=== PATIENT | female | born 1985 | race Caucasian/White ===

== ENCOUNTER 2020-12-31 10:28 | Observation (INO) | payer OTHER ==
[~2020-12-31] VITALS: Ht 165.1 cm; Wt 73.6 kg
[2020-12-31] MEDS ORDERED: ONDANSETRON PF 4 MG/2 ML VIAL. IVP ONE (11:30)
[2020-12-31] MEDS ORDERED: MORPHINE SULFATE 4 MG/ML INJ. IVP ONE ×2 (11:30→14:45)
[2020-12-31] MEDS ORDERED: IV NORMAL SALINE 1000ML BAG 1,000 ML IV ONE ×2 (11:30→17:45)
[2020-12-31 11:46] LABS: BASO % 1 % (0-3); EOS # 0.1 x10^3/uL (0.0-0.7); EOS % 1 % (0-3); HEMATOCRIT 36.6 % (36.0-47.0); HEMOGLOBIN 12.5 g/dL (12.0-15.5); LYMPH % 13 % (24-48); MEAN CORPUSCULAR HEMOGLOBIN 31 pg (25-35); MEAN CORPUSCULAR HGB CONC 34 g/dL (31-37); MEAN CORPUSCULAR VOLUME 90 fL (79-100); MONO # 0.9 x10^3/uL (0.0-1.1); MONO % 11 % (0-9); NEUT # 6.1 x10^3/uL (1.8-7.7); NEUT % 75 % (31-73); PLATELET COUNT 263 x10^3/uL (140-400); RED BLOOD COUNT 4.09 x10^6/uL (3.50-5.40); RED CELL DISTRIBUTION WIDTH 13.5 % (11.5-14.5)
[2020-12-31 12:14] LABS: PREG TEST PT QUAL NEGATIVE (NEG)
[2020-12-31] MEDS ORDERED: IOHEXOL 300 MG/ML 100ML VIAL. IV ONE (12:30)
[2020-12-31] MEDS ORDERED: CONTRAST GIVEN. MC PRN (12:30)
--- NOTE | 2020-12-31 12:50 | PHYS DOC ---
Past Medical History Additional Past Medical Histor: ADHD Past Surgical History: Cholecystectomy, Tonsillectomy General Adult EDM: Chief Complaint: FLANK PAIN HPI: HPI: Patient is a 35 year old female here with report of left-sided flank pain which radiates to her left abdomen. Symptoms have been present for several days. She reports that she initially had some right flank pain, which she still has but does not quite seem quite as severe in comparison to the left flank pain she is experiencing currently. She does admit that the flank pain does vacillate back and forth between the right and the left. She does report some urinary urgency. She denies dysuria. She denies documented fever, but she has had chills. She denies rash. She denies fall, injury or trauma of any kind. She denies vomiting but does report nausea. She denies bowel habit changes. LMP was December 14 of this year. She was seen a few days ago at an urgent care and had a UA positive for leukocytes, and she was prescribed Cipro. She is taking this but feels no better, and in fact she feels worse. Had a previous cholecystectomy. Review of Systems: Review of Systems: Constitutional: Denies fever but has had chills. [] Respiratory: Denies cough or shortness of breath. [] Cardiovascular: Denies chest pain or edema. [] GI: Reports left flank pain, abdominal pain, and nausea. Denies bowel habit changes. No vomiting. : Reports urinary urgency and frequency. Denies gross hematuria. Denies dysuria. Musculoskeletal: Reports right sided and left-sided flank pain. Integument: Denies rash. [] Neurologic: Denies headache, dizziness or weakness. Endocrine: Denies polyuria or polydipsia. [] Heart Score: C/O Chest Pain: No Risk Factors: Risk Factors: DM, Current or recent (<one month) smoker, HTN, HLP, family history of CAD, obesity. Risk Scores: Score 0 - 3: 2.5% MACE over next 6 weeks - Discharge Home Score 4 - 6: 20.3% MACE over next 6 weeks - Admit for Clinical Observation Score 7 - 10: 72.7% MACE over next 6 weeks - Early Invasive Strategies Current Medications: Current Medications Medications (Trade) Dose Ordered Sig/Kenneth Start Time Stop Time Status Last Admin Dose Admin Info (CONTRAST GIVEN -- Rx MONITORING) 1 each PRN DAILY PRN 10/18/21 12:30 01/02/21 12:29 Iohexol (Omnipaque 300 Mg/ml) 75 ml 1X ONCE 12/31/20 12:30 12/31/20 12:31 DC Morphine Sulfate (Morphine Sulfate) 4 mg 1X ONCE 12/31/20 11:30 12/31/20 11:31 DC 12/31/20 11:35 4 MG Ondansetron HCl (Zofran) 4 mg 1X ONCE 12/31/20 11:30 12/31/20 11:31 DC 12/31/20 11:33 4 MG Sodium Chloride 1,000 ml @ 1,000 mls/hr 1X ONCE 12/31/20 11:30 12/31/20 12:29 DC 12/31/20 11:28 1,000 MLS/HR Allergies: Allergies: Allergies Coded Allergies Type Severity Reaction Last Updated Verified No Known Drug Allergies 12/31/20 No Physical Exam: PE: Constitutional: Well developed, well nourished, no acute distress, non-toxic appearance. She does appear to be in pain and uncomfortable. HENT: Normocephalic, atraumatic, bilateral external ears normal, mucous membranes are moist. Eyes: sclera are nonicteric Neck: Trachea is midline. Cardiovascular:Heart rate regular rhythm, +2 radial and dorsalis pedis pulses bilaterally. Lungs & Thorax: Bilateral breath sounds clear to auscultation [] Abdomen: Soft, nondistended, mildly tender to palpation left upper quadrant. She has bilateral mild CVA tenderness. No flank or abdominal rash or ecchymoses. No pelvic or left lower quadrant tenderness. No palpable masses or organomegaly. Normal bowel sounds noted. Skin: Warm, dry, no erythema, no rash. [] Back: Full range of motion, no deformity or signs of trauma. Extremities: No tenderness, no cyanosis, no clubbing, ROM intact, no edema. [] Neurologic: Alert and oriented X 3, normal motor function, normal sensory function, no focal deficits noted. [] Psychologic: She is anxious and appears uncomfortable, though she is cooperative and pleasant. Current Patient Data: Labs: Laboratory Tests Test 12/31/20 11:25 White Blood Count 8.0 x10^3/uL (4.0-11.0) Red Blood Count 4.09 x10^6/uL (3.50-5.40) Hemoglobin 12.5 g/dL (12.0-15.5) Hematocrit 36.6 % (36.0-47.0) Mean Corpuscular Volume 90 fL (79-100) Mean Corpuscular Hemoglobin 31 pg (25-35) Mean Corpuscular Hemoglobin Concent 34 g/dL (31-37) Red Cell Distribution Width 13.5 % (11.5-14.5) Platelet Count 263 x10^3/uL (140-400) Neutrophils (%) (Auto) 75 % (31-73) H Lymphocytes (%) (Auto) 13 % (24-48) L Monocytes (%) (Auto) 11 % (0-9) H Eosinophils (%) (Auto) 1 % (0-3) Basophils (%) (Auto) 1 % (0-3) Neutrophils # (Auto) 6.1 x10^3/uL (1.8-7.7) Lymphocytes # (Auto) 1.0 x10^3/uL (1.0-4.8) Monocytes # (Auto) 0.9 x10^3/uL (0.0-1.1) Eosinophils # (Auto) 0.1 x10^3/uL (0.0-0.7) Basophils # (Auto) 0.0 x10^3/uL (0.0-0.2) Total Bilirubin 0.5 mg/dL (0.2-1.0) Direct Bilirubin 0.1 mg/dL (0.0-0.2) Aspartate Amino Transferase (AST) 23 U/L (15-37) Alanine Aminotransferase (ALT) 46 U/L (14-59) Alkaline Phosphatase 76 U/L (46-116) Total Protein 7.5 g/dL (6.4-8.2) Albumin 3.7 g/dL (3.4-5.0) Lipase 107 U/L (73-393) Serum Test, Qualitative Negative (NEG) Laboratory Tests 12/31/20 11:25 Vital Signs: Vital Signs Date Time Temp Pulse Resp B/P (MAP) Pulse Ox O2 Delivery O2 Flow Rate FiO2 12/31/20 11:35 24 99 Room Air 12/31/20 11:11 98.1 96 137/86 (103) 98.1 EKG: EKG: [] Radiology/Procedures: Radiology/Procedures: IMAGING REPORT Signed PATIENT: CALLI LUNDBERG JACCOUNT: [id number] : 1985 LOCATION: ER AGE: 35 SEX: F EXAM STATUS: REG ER ORD. PHYSICIAN: HAN KHAN DO REASON: abdominal pain, flank pain PROCEDURE: CT ABD PELV W/ IV CONTRST ONLY CT OF THE ABDOMEN AND PELVIS WITH IV CONTRAST. History: Reason: abdominal pain, flank pain / Spl. Instructions: OMNI 300 75ML / History: Comparison:None. Procedure: Contiguous axial images of the abdomen and pelvis were performed after the admi nistration of 75 cc of Omni 300 IV contrast. Oral contrast: No. Findings: Liver: Unremarkable Spleen: Unremarkable Pancreas: Unremarkable Adrenal Glands: Unremarkable Kidneys: There is a 2.3 x 2.1 cm hypoattenuating lesion in the mid right kidney posterior laterally with minimal surrounding inflammation. Prominence left renal pelvis is seen. There has been prior cholecystectomy. The appendix appears normal. There is multiple prominent fluid-filled loops of small bowel on the left. There is no mass or lymphadenopathy. There is no free air. There is no free fluid. The urinary bladder appears normal. Impression: 1. Hypoattenuating lesion in the right kidney could be pyelonephritis with a lobar nephroma. Clinical correlation is suggested. 2. Prominence the left renal pelvis could be parapelvic cysts or congenital kinking of the UPJ. There is no perinephric edema on the left. 3. Mild ileus. End Impression PQRS Compliance Statement: One or more of the following individualized dose reduction techniques were utilized for this examination: 1. Automated exposure control 2. Adjustment of the mA and/or kV according to patient size 3. Use of iterative reconstruction technique Electronically signed by: Nereyda Pryor III, MD (12/31/2020 1:40 PM) [facility] DICTATED and SIGNED BY: NEREYDA PRYOR III, MD DATE: 12/31/20 [id number] 0 Course & Med Decision Making: Course & Med Decision Making Pertinent Labs and Imaging studies reviewed. (See chart for details) The patient is given IV fluids. IV Rocephin empirically given for pyelonephritis. She received multiple doses of opioid pain medications, i ncluding Dilaudid. She is finally resting slightly more comfortably. I personally examined the CT findings, in addition to the radiologist read. Her right kidney does have a concerning lesion for either intrinsic mass, cyst or possible developing perinephric abscess. Urology services are not available here. I had initially contacted [facility], and they have declined transfer due to lack of capacity. I contacted [facility] system as well, and they are not able to accept her for transfer due to lack of capacity as well. However I was able to get a hold of her urologist named Dr. Villasenor, who is very helpful. He was able to view the images via the cloud. He agrees that he is uncertain if this is infected developing perinephric abscess or other underlying lesion. He recommends medical management with IV antibiotics for 48 to 72 hours, with repeat CT imaging and repeat labs within that timeframe. If CT is unchanged and lab abnormalities and clinical deterioration are not present, the patient may be discharged home with 2 weeks of oral antibiotics for treatment of pyelonephritis. He would not recommend any emergency intervention from a urologic standpoint or IR standpoint at this time. However he does indicate that IR drainage and nephrostomy tube placement may be required if a full abscess does develop. At that time, if the patient does deteriorate or worsen, they will be happy to reevaluate her and potentially scepter for transfer, if warranted clinically. He agrees that she may follow- up with him or one of his colleagues as an outpatient, as he agrees that the lesion definitely needs close follow-up. I discussed all of this with the patient, and I have recommended admission. Pain control, scheduled antibiotics and serial exams will be required. She is comfortable with the plan for admission. She is accepted for admission by Dr. Dial. Morris Disclaimer: Morris Disclaimer: This electronic medical record was generated, in whole or in part, using a voice recognition dictation system. Departure Departure Impression: Primary Impression: Pyelonephritis Additional Impression: Lesion of right ho-chunk kidney Disposition: ADMITTED INPATIENT Admitting Physician: REID Condition: STABLE Referrals: UNKNOWN PCP NAME (PCP) HAN KHAN DO Dec 31, 2020 12:49
[2020-12-31 12:53] LABS: CALCIUM 10.3 mg/dL (8.5-10.1); CREATININE 0.8 mg/dL (0.6-1.0); GFR 81.2
[2020-12-31 12:59] LABS: TOTAL BILIRUBIN 0.5 mg/dL (0.2-1.0)
[2020-12-31 13:01] LABS: ALBUMIN 3.7 g/dL (3.4-5.0); TOTAL PROTEIN 7.5 g/dL (6.4-8.2)
[2020-12-31 13:04] LABS: DIRECT BILIRUBIN 0.1 mg/dL (0.0-0.2)
[2020-12-31 13:22] LABS: BILIRUBIN,URINE NEGATIVE (NEG); CLARITY,URINE CLEAR; COLOR,URINE YELLOW; NITRITE,URINE NEGATIVE (NEG); PH,URINE 5.5 (<5.0-8.0); PROTEIN,URINE NEGATIVE (NEG-TRACE); UROBILINOGEN,URINE 0.2 mg/dL (0.2 mg/dL)
[2020-12-31 13:37] LABS: BACTERIA,URINE FEW /HPF (0-FEW)
--- NOTE | 2020-12-31 13:43 | RAD ---
CT OF THE ABDOMEN AND PELVIS WITH IV CONTRAST. History: Reason: abdominal pain, flank pain / Spl. Instructions: OMNI 300 75ML / History: Comparison:None. Procedure: Contiguous axial images of the abdomen and pelvis were performed after the administration of 75 cc o f Omni 300 IV contrast. Oral contrast: No. Findings: Liver: Unremarkable Spleen: Unremarkable Pancreas: Unremarkable Adrenal Glands: Unremarkable Kidneys: There is a 2.3 x 2.1 cm hypoattenuating lesion in the mid right kidney posterior laterally w ith minimal surrounding inflammation. Prominence left renal pelvis is seen. There has been prior cholecystectomy. The appendix appears normal. There is multiple prominent fluid-filled loops of small bowel on the left. There is no mass or lymphadenopathy. There is no free air. There is no free fluid. The urinary bladder appears normal. Impression: 1. Hypoattenuating lesion in the right kidney could be pyelonephritis with a lobar nephroma. Clinical correlation is suggested. 2. Prominence the left renal pelvis could be parapelvic cysts or congenital kinking of the UPJ. There is no perinephric edema on the left. 3. Mild ileus. End Impression PQRS Compliance Statement: One or more of the following individualized dose reduction techniques were utilized for this examinat ion: 1. Automated exposure control 2. Adjustment of the mA and/or kV according to patient size 3. Use of iterative reconstruction technique Electronically signed by: Lorenzo Werner III, MD (12/31/2020 1:40 PM) [facility]
[2020-12-31] MEDS ORDERED: cefTRIAXone IV Push 1 GM VIAL. IVP ONE (14:00)
[2020-12-31] MEDS ORDERED: HYDROmorphone 2 MG/ML VIAL IVP ONE ×2 (15:15→17:45)
[2020-12-31] MEDS ORDERED: fentaNYL PF VIAL 100 MCG/2 ML VIAL IVP PRN (17:45)
[2020-12-31] MEDS ORDERED: ONDANSETRON PF 4 MG/2 ML VIAL. IVP PRN (17:45)
[2020-12-31] MEDS ORDERED: LORazepam 0.5 MG TABLET PO PRN (18:15)
[2020-12-31] MEDS ORDERED: DOCUSATE SODIUM 100 MG CAPSULE. PO PRN (18:15)
[2020-12-31] MEDS ORDERED: PROCHLORPERAZINE 10 MG/2 ML VIAL. IV PRN (18:15)
[2020-12-31] MEDS ORDERED: DEXTROSE 50% 25 GM / 50ML DISP.SYRIN. IV PRN (18:15)
[2020-12-31] MEDS ORDERED: SENNOSIDES 8.6 MG TABLET PO PRN (18:15)
[2020-12-31] MEDS ORDERED: ZOLPIDEM 5 MG TABLET. PO PRN (18:15)
[2020-12-31] MEDS ORDERED: ACETAMINOPHEN 325 MG TABLET. PO PRN (18:15)
[2020-12-31] MEDS ORDERED: IBUPROFEN 200 MG TABLET. PO PRN (18:30)
[2020-12-31 18:41] LABS: BARBITURATES NEG (NEG); BENZODIAZEPINES NEG (NEG); CANNABINOIDS NEG (NEG); COCAINE NEG (NEG); METHADONE NEG (NEG); OPIATES POS (NEG); PHENCYCLIDINE NEG (NEG)
[2020-12-31 18:43] LABS: AMPHETAMINE/METHAMPHETAMINE NEG (NEG)
[2020-12-31 19:00] VITALS: BP 109/62
[2020-12-31 19:30] VITALS: BP 112/54
--- NOTE | 2020-12-31 19:59 | PDOC1 ---
History and Physical Date of Service: DOS: DATE: 12/31/20 TIME: 19:56 Chief Complaint: Chief Complain: Flank Pain History of Present Illness: HPI: History obtained from discussion with the ED physician and chart review: Patient is a 35-year-old female with past medical history of ADHD, multiple strep throat infections as a child, tonsillectomy who comes in with right-sided flank pain which radiates to the lower right abdominal area. Patient also complains of left-sided flank pain in the past but is not as bad as the right side. Patient has been experiencing this pain since Thursday. She apparently went to the urgent healthcare and her UA said that she had leukocytes that was suggestive of UTI and she was given ciprofloxacin. Patient states that she had the left flank pain initially but it did actually gravitate more towards the right side later on. Endorses some urinary frequency. Denies any dysuria, fevers, chest pain, shortness of breath, rash, trauma or nausea vomiting. Last bowel movement was today before coming into the ED. LMP was December 14 of this year. Past Medical/Surgical History: PMH/PSH: Multiple strep throat as a child ADHD was on Adderall but stopped 5 years ago History of cholecystectomy tonsillectomy Allergies: Allergies: Coded Allergies: No Known Drug Allergies (Unverified , 12/31/20) Family History: Family History: Reviewed with no relevant findings Social History: Social History: Denies any alcohol, drug or tobacco abuse. Works for the [employer] Current Medications: Current Medications Current Medications Morphine Sulfate (Morphine Sulfate) 4 mg 1X ONCE IVP Last administered on 12/31/20at 11:35; Start 12/31/20 at 11:30; Stop 12/31/20 at 11:31; Status DC Ondansetron HCl (Zofran) 4 mg 1X ONCE IVP Last administered on 12/31/20at 11:33; Start 12/31/20 at 11:30; Stop 12/31/20 at 11:31; Status DC Sodium Chloride 1,000 ml @ 1,000 mls/hr 1X ONCE IV Last administered on 12/31/20at 11:28; Start 12/31/20 at 11:30; Stop 12/31/20 at 12:29; Status DC Iohexol (Omnipaque 300 Mg/ml) 75 ml 1X ONCE IV Last administered on 12/31/20at 12:30; Start 12/31/20 at 12:30; Stop 12/31/20 at 12:31; Status DC Info (CONTRAST GIVEN -- Rx MONITORING) 1 each PRN DAILY PRN MC SEE COMMENTS; Start 12/31/20 at 12:30; Stop 01/02/21 at 12:29 Ceftriaxone Sodium (Rocephin) 1 gm 1X ONCE IVP Last administered on 12/31/20at 14:30; Start 12/31/20 at 14:00; Stop 12/31/20 at 14:03; Status DC Morphine Sulfate (Morphine Sulfate) 4 mg 1X ONCE IVP Last administered on 12/31/20at 14:50; Start 12/31/20 at 14:45; Stop 12/31/20 at 14:47; Status DC Hydromorphone HCl (Dilaudid) 1 mg 1X ONCE IVP Last administered on 12/31/20at 15:31; Start 12/31/20 at 15:15; Stop 12/31/20 at 15:16; Status DC Hydromorphone HCl (Dilaudid) 1 mg 1X ONCE IVP Last administered on 12/31/20at 17:43; Start 12/31/20 at 17:45; Stop 12/31/20 at 17:49; Status DC Ondansetron HCl (Zofran) 4 mg PRN Q8HRS PRN IVP NAUSEA/VOMITING; Start 12/31/20 at 17:45; Stop 12/31/20 at 18:44; Status DC Fentanyl Citrate (Fentanyl 2ml Vial) 50 mcg PRN Q1HR PRN IVP pain; Start 12/31/20 at 17:45 Hydromorphone HCl (Dilaudid) 1 mg PRN Q2HR PRN IVP pain; Start 12/31/20 at 17:45 Sodium Chloride 1,000 ml @ 100 mls/hr 1X ONCE IV ; Start 12/31/20 at 17:45; Stop 01/01/21 at 03:44 Sennosides (Senna) 17.2 mg PRN BID PRN PO CONSTIPATION; Start 12/31/20 at 1 8:15 Docusate Sodium (Colace) 100 mg PRN DAILY PRN PO HARD STOOLS; Start 12/31/20 at 18:15 Ondansetron HCl (Zofran) 4 mg PRN Q6HRS PRN IVP NAUSEA/VOMITING, 1st CHOICE; Start 12/31/20 at 18:15 Dextrose (Dextrose 50%-Water Syringe) 12.5 gm PRN Q15MIN PRN IV SEE COMMENTS; Start 12/31/20 at 18:15 Acetaminophen (Tylenol) 650 mg PRN Q4HRS PRN PO TEMP OVER 100.4F OR MILD PAIN; Start 12/31/20 at 18:15 Lorazepam (Ativan) 0.5 mg PRN Q6HRS PRN PO ANXIETY / AGITATION; Start 12/31/20 at 18:15 Lorazepam (Ativan Inj) 0.25 mg PRN Q4HRS PRN IV ANXIETY / AGITATION; Start 12/31/20 at 18:15 Prochlorperazine Edisylate (Compazine) 10 mg PRN Q6HRS PRN IV NAUSEA/VOMITING, 2nd CHOICE; Start 12/31/20 at 18:15 Zolpidem Tartrate (Ambien) 2.5 mg PRN QHS PRN PO INSOMNIA; Start 12/31/20 at 18:15 Sodium Chloride 1,000 ml @ 100 mls/hr Q10H IV ; Start 12/31/20 at 18:15 Piperacillin Sod/ Tazobactam Sod 3.375 gm/Sodium Chloride 50 ml @ 100 mls/hr Q6HRS IV ; Start 12/31/20 at 19:00 Ibuprofen (Motrin) 600 mg PRN Q6HRS PRN PO PAIN; Start 12/31/20 at 18:30 ROS: Review of Systems Review of System REVIEW OF SYSTEMS: GENERAL: Denies weakness SKIN: No bruising, hair changes or rashes. EYES: No blurred, double or loss of vision. NOSE AND THROAT: No history of nosebleeds, hoarseness or sore throat. HEART: No history of palpitations, chest pain or shortness of breath on exertion. LUNGS: Denies cough, hemoptysis, wheezing or shortness of breath. GASTROINTESTINAL: Right-sided flank pain GENITOURINARY: No history of frequency, urgency, hesitancy or nocturia. NEUROLOGIC: Denies history of numbness, tingling, or tremor. PSYCHIATRIC: No history of panic, anxiety or depression. ENDOCRINE: No history of heat or cold intolerance, polyuria or polydipsia. EXTREMITIES: Denies joint pain, pain on walking or stiffness. Physical Exam: Vital Signs: Vital Signs Date Time Temp Pulse Resp B/P (MAP) Pulse Ox O2 Delivery O2 Flow Rate FiO2 12/31/20 19:30 98.0 93 18 112/54 (73) 97 Room Air 98.0 Physcial Exam: General: Well developed, well nourished, no acute distress, well appearing HEENT: Pupils equally round and reactive to light, EOMI, no discharge, normal conjunctiva Neck: Supple, no nuchal rigidity, no JVD, trachea midline, no tenderness Cardiac: RRR, no murmurs, no gallops, no rubs Chest/Lungs: CTAB, no wheeze, no rhonchi, no crackles Abdomen: soft, non-distended, no guarding, no peritoneal signs, non-tender. Back: No tenderness. mildly tender to palpation left upper quadrant. She has bilateral mild CVA tenderness Extremities: no edema, pulses intact, non-tender,capillary refill <3 sec bilateral upper and lower extremities, Neuro: Alert and oriented x 4, no focal deficits, normal speech Labs: Labs: Laboratory Tests Test 12/31/20 11:25 12/31/20 12:40 12/31/20 12:54 White Blood Count 8.0 x10^3/uL (4.0-11.0) Red Blood Count 4.09 x10^6/uL (3.50-5.40) Hemoglobin 12.5 g/dL (12.0-15.5) Hematocrit 36.6 % (36.0-47.0) Mean Corpuscular Volume 90 fL (79-100) Mean Corpuscular Hemoglobin 31 pg (25-35) Mean Corpuscular Hemoglobin Concent 34 g/dL (31-37) Red Cell Distribution Width 13.5 % (11.5-14.5) Platelet Count 263 x10^3/uL (140-400) Neutrophils (%) (Auto) 75 % (31-73) Lymphocytes (%) (Auto) 13 % (24-48) Monocytes (%) (Auto) 11 % (0-9) Eosinophils (%) (Auto) 1 % (0-3) Basophils (%) (Auto) 1 % (0-3) Neutrophils # (Auto) 6.1 x10^3/uL (1.8-7.7) Lymphocytes # (Auto) 1.0 x10^3/uL (1.0-4.8) Monocytes # (Auto) 0.9 x10^3/uL (0.0-1.1) Eosinophils # (Auto) 0.1 x10^3/uL (0.0-0.7) Basophils # (Auto) 0.0 x10^3/uL (0.0-0.2) Sodium Level 138 mmol/L (136-145) Potassium Level 4.0 mmol/L (3.5-5.1) Chloride Level 104 mmol/L (98-107) Carbon Dioxide Level 23 mmol/L (21-32) Anion Gap 11 (6-14) Blood Urea Nitrogen 10 mg/dL (7-20) Creatinine 0.8 mg/dL (0.6-1.0) Estimated GFR (Cockcroft-Gault) 81.2 BUN/Creatinine Ratio 13 (6-20) Glucose Level 105 mg/dL (70-99) Calcium Level 10.3 mg/dL (8.5-10.1) Total Bilirubin 0.5 mg/dL (0.2-1.0) Direct Bilirubin 0.1 mg/dL (0.0-0.2) Aspartate Amino Transf (AST/SGOT) 23 U/L (15-37) Alanine Aminotransferase (ALT/SGPT) 46 U/L (14-59) Alkaline Phosphatase 76 U/L (46-116) Total Protein 7.5 g/dL (6.4-8.2) Albumin 3.7 g/dL (3.4-5.0) Albumin/Globulin Ratio 1.0 (1.0-1.7) Lipase 107 U/L (73-393) Serum Test, Qualitative Negative (NEG) Urine Collection Type Unknown Urine Color Yellow Urine Clarity Clear Urine pH 5.5 (<5.0-8.0) Urine Specific [place] 1.020 (1.000-1.030) Urine Protein Negative mg/dL (NEG-TRACE) Urine Glucose (UA) Negative mg/dL (NEG) Urine Ketones (Stick) Negative mg/dL (NEG) Urine Blood Negative (NEG) Urine Nitrite Negative (NEG) Urine Bilirubin Negative (NEG) Urine Urobilinogen Dipstick 0.2 mg/dL (0.2 mg/dL) Urine Leukocyte Esterase Negative (NEG) Urine RBC 1-2 /HPF (0-2) Urine WBC 1-4 /HPF (0-4) Urine Squamous Epithelial Cells Many /LPF Urine Bacteria Few /HPF (0-FEW) Urine Mucus Mod /LPF Urine Opiates Screen Pos (NEG) Urine Methadone Screen Neg (NEG) Urine Barbiturates Neg (NEG) Urine Phencyclidine Screen Neg (NEG) Urine Amphetamine/Methamphetamine Neg (NEG) Urine Benzodiazepines Screen Neg (NEG) Urine Cocaine Screen Neg (NEG) Urine Cannabinoids Screen Neg (NEG) Urine Ethyl Alcohol Neg (NEG) Bedside Urine HCG, Qualitative Hcg negative (Negative) Laboratory Tests Test 12/31/20 11:25 12/31/20 12:40 12/31/20 12:54 White Blood Count 8.0 x10^3/uL (4.0-11.0) Red Blood Count 4.09 x10^6/uL (3.50-5.40) Hemoglobin 12.5 g/dL (12.0-15.5) Hematocrit 36.6 % (36.0-47.0) Mean Corpuscular Volume 90 fL (79-100) Mean Corpuscular Hemoglobin 31 pg (25-35) Mean Corpuscular Hemoglobin Concent 34 g/dL (31-37) Red Cell Distribution Width 13.5 % (11.5-14.5) Platelet Count 263 x10^3/uL (140-400) Neutrophils (%) (Auto) 75 % (31-73) Lymphocytes (%) (Auto) 13 % (24-48) Monocytes (%) (Auto) 11 % (0-9) Eosinophils (%) (Auto) 1 % (0-3) Basophils (%) (Auto) 1 % (0-3) Neutrophils # (Auto) 6.1 x10^3/uL (1.8-7.7) Lymphocytes # (Auto) 1.0 x10^3/uL (1.0-4.8) Monocytes # (Auto) 0.9 x10^3/uL (0.0-1.1) Eosinophils # (Auto) 0.1 x10^3/uL (0.0-0.7) Basophils # (Auto) 0.0 x10^3/uL (0.0-0.2) Sodium Level 138 mmol/L (136-145) Potassium Level 4.0 mmol/L (3.5-5.1) Chloride Level 104 mmol/L (98-107) Carbon Dioxide Level 23 mmol/L (21-32) Anion Gap 11 (6-14) Blood Urea Nitrogen 10 mg/dL (7-20) Creatinine 0.8 mg/dL (0.6-1.0) Estimated GFR (Cockcroft-Gault) 81.2 BUN/Creatinine Ratio 13 (6-20) Glucose Level 105 mg/dL (70-99) Calcium Level 10.3 mg/dL (8.5-10.1) Total Bilirubin 0.5 mg/dL (0.2-1.0) Direct Bilirubin 0.1 mg/dL (0.0-0.2) Aspartate Amino Transf (AST/SGOT) 23 U/L (15-37) Alanine Aminotransferase (ALT/SGPT) 46 U/L (14-59) Alkaline Phosphatase 76 U/L (46-116) Total Protein 7.5 g/dL (6.4-8.2) Albumin 3.7 g/dL (3.4-5.0) Albumin/Globulin Ratio 1.0 (1.0-1.7) Lipase 107 U/L (73-393) Serum Test, Qualitative Negative (NEG) Urine Collection Type Unknown Urine Color Yellow Urine Clarity Clear Urine pH 5.5 (<5.0-8.0) Urine Specific [place] 1.020 (1.000-1.030) Urine Protein Negative mg/dL (NEG-TRACE) Urine Glucose (UA) Negative mg/dL (NEG) Urine Ketones (Stick) Negative mg/dL (NEG) Urine Blood Negative (NEG) Urine Nitrite Negative (NEG) Urine Bilirubin Negative (NEG) Urine Urobilinogen Dipstick 0.2 mg/dL (0.2 mg/dL) Urine Leukocyte Esterase Negative (NEG) Urine RBC 1-2 /HPF (0-2) Urine WBC 1-4 /HPF (0-4) Urine Squamous Epithelial Cells Many /LPF Urine Bacteria Few /HPF (0-FEW) Urine Mucus Mod /LPF Urine Opiates Screen Pos (NEG) Urine Methadone Screen Neg (NEG) Urine Barbiturates Neg (NEG) Urine Phencyclidine Screen Neg (NEG) Urine Amphetamine/Methamphetamine Neg (NEG) Urine Benzodiazepines Screen Neg (NEG) Urine Cocaine Screen Neg (NEG) Urine Cannabinoids Screen Neg (NEG) Urine Ethyl Alcohol Neg (NEG) Bedside Urine HCG, Qualitative Hcg negative (Negative) Images: Images PROCEDURE: CT ABD PELV W/ IV CONTRST ONLY CT OF THE ABDOMEN AND PELVIS WITH IV CONTRAST. History: Reason: abdominal pain, flank pain / Spl. Instructions: OMNI 300 75ML / History: Comparison:None. Procedure: Contiguous axial images of the abdomen and pelvis were performed after the administration of 75 cc of Omni 300 IV contrast. Oral contrast: No. Findings: Liver: Unremarkable Spleen: Unremarkable Pancreas: Unremarkable Adrenal Glands: Unremarkable Kidneys: There is a 2.3 x 2.1 cm hypoattenuating lesion in the mid right kidney posterior laterally with minimal surrounding inflammation. Prominence left renal pelvis is seen. There has been prior cholecystectomy. The appendix appears normal. There is multiple prominent fluid-filled loops of small bowel on the left. There is no mass or lymphadenopathy. There is no free air. There is no free fluid. The urinary bladder appears normal. Impression: 1. Hypoattenuating lesion in the right kidney could be pyelonephritis with a lobar nephroma. Clinical correlation is suggested. 2. Prominence the left renal pelvis could be parapelvic cysts or congenital kinking of the UPJ. There is no perinephric edema on the left. 3. Mild ileus. Assessment/Plan Assessment/Plan Bilateral flank pain, possible acute pyelonephritis Hypoattenuating lesion in the right kidney could be pyelonephritis with a lobar nephroma Prominence the left renal pelvis could be parapelvic cysts or congenital kinking of the UPJ History of multiple strep pharyngitis History of ADHD Admit to hospitalist service for further management Continue empiric IV antibiotics Repeat CT imaging in 48 to 72 hours to observe for evolution or enlarging of the lesion, if appears stable can consider possible discharge with 2 weeks of antibiotics and follow-up closely with urology on outpatient basis Nephrology consult Continue IV fluids Consider echocardiogram to consider complications of strep pharyngitis in the past that may have caused the valvular vegetation or damage, if unable to elucidate reasons for nephroma if abscess has been ruled out Lovenox for DVT prophylaxis Regular diet CODE STATUS full Discussed with RN and SW Disposition inpatient management as above DPOA: Justifications for Admission Other Justification Pyelnephritis PASQUALE PANDEY MD Dec 31, 2020 19:59
[2020-12-31] MEDS: HYDROmorphone 2 MG/ML VIAL IVP PRN (20:23)
[2020-12-31] MEDS: IV NORMAL SALINE 1000ML BAG 1,000 ML IV SCH (20:24)
[2020-12-31] MEDS: PIPERACILLIN/TAZOBACTAM 3.375 GM in IV NORMAL SALINE 50ML 50 ML IV SCH (20:25)
[2020-12-31 23:00] VITALS: BP 107/75
[2021-01-01] MEDS: PIPERACILLIN/TAZOBACTAM 3.375 GM in IV NORMAL SALINE 50ML 50 ML IV SCH ×4 (00:34→17:33)
[2021-01-01] MEDS: HYDROmorphone 2 MG/ML VIAL IVP PRN ×3 (00:34→09:27)
[2021-01-01 03:00] VITALS: BP 103/59
[2021-01-01 04:15] LABS: BASO # 0.1 x10^3/uL (0.0-0.2); BASO % 1 % (0-3); EOS # 0.2 x10^3/uL (0.0-0.7); EOS % 3 % (0-3); HEMATOCRIT 32.9 % (36.0-47.0); HEMOGLOBIN 11.1 g/dL (12.0-15.5); LYMPH # 1.8 x10^3/uL (1.0-4.8); LYMPH % 26 % (24-48); MEAN CORPUSCULAR HEMOGLOBIN 31 pg (25-35); MEAN CORPUSCULAR HGB CONC 34 g/dL (31-37); MEAN CORPUSCULAR VOLUME 90 fL (79-100); MONO # 0.6 x10^3/uL (0.0-1.1); MONO % 9 % (0-9); NEUT # 4.2 x10^3/uL (1.8-7.7); NEUT % 61 % (31-73); PLATELET COUNT 245 x10^3/uL (140-400); RED BLOOD COUNT 3.65 x10^6/uL (3.50-5.40); RED CELL DISTRIBUTION WIDTH 13.6 % (11.5-14.5); WHITE BLOOD COUNT 6.9 x10^3/uL (4.0-11.0)
[2021-01-01 04:38] LABS: CALCIUM 9.5 mg/dL (8.5-10.1); CREATININE 0.8 mg/dL (0.6-1.0); GFR 81.2; POTASSIUM 4.2 mmol/L (3.5-5.1)
[2021-01-01] MEDS: IV NORMAL SALINE 1000ML BAG 1,000 ML IV SCH ×2 (05:30→14:15)
[2021-01-01] MEDS: ONDANSETRON PF 4 MG/2 ML VIAL. IVP PRN (05:58)
[2021-01-01 07:00] VITALS: BP 115/76
--- NOTE | 2021-01-01 10:09 | PDOC2 ---
CONSULT Date of Consult Date of Consult DATE: 01/01/21 TIME: 09:50 Reason for Consult Reason for Consult: Acute Pyelonephritis on CT scan Identification/Chief Complaint Chief Complaint Rt and Lt Plank pain- Improved 04/25 now Source Source: Chart review, Patient History of Present Illness Reason for Visit: Patient is a 35-year-old CF with past medical history of ADHD, multiple strep throat infections as a child, tonsillectomy . She states she was having right- sided flank pain radiating to the lower right abdominal area. She went to the urgent care was told UA was suggestive of UTI and she was given ciprofloxacin, which she has been taking . She reports she started having "Crippling" pain in the Lt Flank area and decided to come to the [facility] ER . She denies any symptoms of UTI- No dysuria, Hematuria. Noted Urine was darker but clearer this morning . She states her UOP has been normal . She reports frequent UTI's when she was younger ; no hospitalizations. Denies any Fevers, chills . No chest pain, shortness of breath. Denies rash or Joint pains . Denies Vomiting, c/o mild nausea . Denies diarrhea . She has been using NSAID 's 2/day for pain . No other significant PMHx per patient. Not on any prescribed or OTC meds/health supplements . Denies use of Illicit drugs, denies alcohol use . Denies LE edema She reports Lt flank pain is better / now , now is is c/o Rt Flank pain- not as severe but asking for pain meds . She states her pain vacillates Past Medical History Past Medical History Multiple strep throat as a child Frequent UTI when she was younger ADHD was on Adderall but stopped 5 years ago Past Surgical History Past Surgical History History of cholecystectomy tonsillectomy Family History Family History Reviewed with no relevant findings Social History Social History Denies any alcohol, drug or tobacco abuse. Works for the [employer] Department Current Problem List Problem List Problems Medical Problems: (1) Lesion of right [place] kidney Status: Acute (2) Pyelonephritis Status: Acute Current Medications Current Medications Current Medications Morphine Sulfate (Morphine Sulfate) 4 mg 1X ONCE IVP Last administered on 12/31/20at 11:35; Start 12/31/20 at 11:30; Stop 12/31/20 at 11:31; Status DC Ondansetron HCl (Zofran) 4 mg 1X ONCE IVP Last administered on 12/31/20at 11:33; Start 12/31/20 at 11:30; Stop 12/31/20 at 11:31; Status DC Sodium Chloride 1,000 ml @ 1,000 mls/hr 1X ONCE IV Last administered on 12/31/20at 11:28; Start 12/31/20 at 11:30; Stop 12/31/20 at 12:29; Status DC Iohexol (Omnipaque 300 Mg/ml) 75 ml 1X ONCE IV Last administered on 12/31/20at 12:30; Start 12/31/20 at 12:30; Stop 12/31/20 at 12:31; Status DC Info (CONTRAST GIVEN -- Rx MONITORING) 1 each PRN DAILY PRN MC SEE COMMENTS; Start 12/31/20 at 12:30; Stop 01/02/21 at 12:29 Ceftriaxone Sodium (Rocephin) 1 gm 1X ONCE IVP Last administered on 12/31/20at 14:30; Start 12/31/20 at 14:00; Stop 12/31/20 at 14:03; Status DC Morphine Sulfate (Morphine Sulfate) 4 mg 1X ONCE IVP Last administered on 12/31/20at 14:50; Start 12/31/20 at 14:45; Stop 12/31/20 at 14:47; Status DC Hydromorphone HCl (Dilaudid) 1 mg 1X ONCE IVP Last administered on 12/31/20at 15:31; Start 12/31/20 at 15:15; Stop 12/31/20 at 15:16; Status DC Hydromorphone HCl (Dilaudid) 1 mg 1X ONCE IVP Last administered on 12/31/20at 17:43; Start 12/31/20 at 17:45; Stop 12/31/20 at 17:49; Status DC Ondansetron HCl (Zofran) 4 mg PRN Q8HRS PRN IVP NAUSEA/VOMITING; Start 12/31/20 at 17:45; Stop 12/31/20 at 18:44; Status DC Fentanyl Citrate (Fentanyl 2ml Vial) 50 mcg PRN Q1HR PRN IVP pain; Start 12/31/20 at 17:45 Hydromorphone HCl (Dilaudid) 1 mg PRN Q2HR PRN IVP pain Last administered on 01/01/21at 09:27; Start 12/31/20 at 17:45 Sodium Chloride 1,000 ml @ 100 mls/hr 1X ONCE IV ; Start 12/31/20 at 17:45; Stop 01/01/21 at 03:44; Status DC Sennosides (Senna) 17.2 mg PRN BID PRN PO CONSTIPATION Last administered on 01/01/21at 09:30; Start 12/31/20 at 18:15 Docusate Sodium (Colace) 100 mg PRN DAILY PRN PO HARD STOOLS; Start 12/31/20 at 18:15 Ondansetron HCl (Zofran) 4 mg PRN Q6HRS PRN IVP NAUSEA/VOMITING, 1st CHOICE Last administered on 01/01/21at 05:58; Start 12/31/20 at 18:15 Dextrose (Dextrose 50%-Water Syringe) 12.5 gm PRN Q15MIN PRN IV SEE COMMENTS; Start 12/31/20 at 18:15 Acetaminophen (Tylenol) 650 mg PRN Q4HRS PRN PO TEMP OVER 100.4F OR MILD PAIN; Start 12/31/20 at 18:15 Lorazepam (Ativan) 0.5 mg PRN Q6HRS PRN PO ANXIETY / AGITATION; Start 12/31/20 at 18:15 Lorazepam (Ativan Inj) 0.25 mg PRN Q4HRS PRN IV ANXIETY / AGITATION; Start 12/31/20 at 18:15 Prochlorperazine Edisylate (Compazine) 10 mg PRN Q6HRS PRN IV NAUSEA/VOMITING, 2nd CHOICE; Start 12/31/20 at 18:15 Zolpidem Tartrate (Ambien) 2.5 mg PRN QHS PRN PO INSOMNIA Last administered on 12/31/20at 20:39; Start 12/31/20 at 18:15 Sodium Chloride 1,000 ml @ 100 mls/hr Q10H IV Last administered on 01/01/21at 05:30; Start 12/31/20 at 18:15 Piperacillin Sod/ Tazobactam Sod 3.375 gm/Sodium Chloride 50 ml @ 100 mls/hr Q6HRS IV Last administered on 01/01/21at 05:30; Start 12/31/20 at 19:00 Ibuprofen (Motrin) 600 mg PRN Q6HRS PRN PO PAIN; Start 12/31/20 at 18:30 Allergies Allergies: Coded Allergies: No Known Drug Allergies (Unverified , 12/31/20) ROS Review of System As per HPI, rest of the ROS is negative Physical Exam Physical Exam General: no acute distress HEENT: Pupils equally round and reactive to light, EOMI, OM moist Neck: Supple, Cardiac: RRR, no murmurs, no gallops, no rubs Lungs: CTAB, Non labored Abdomen: soft, non-distended, no guarding, : . She has bilateral mild CVA tenderness and suprapubic , No Chin Extremities: no edema, Neuro: Alert and oriented x 4, no focal deficits, normal speech Psych Cooperative Derm No rash Vital Signs Vital Signs Date Time Temp Pulse Resp B/P (MAP) Pulse Ox O2 Delivery O2 Flow Rate FiO2 01/01/21 09:27 Room Air 01/01/21 07:00 97.9 64 18 115/76 (89) 96 97.9 Assessment & Plan Bilateral flank pain Vacillating - Per CT scan report acute pyelonephritis Rt ; UA unemarkable , has been on Cipro for UTI Dx at urgent care Received multiple doses of opioid pain medications, including Dilaudid in ER; Currently on IV Abx managed by Primary . Renal Function /Cr is normal. Avoid NSAID's , strict I/O Abnormal CT- Hypoattenuating lesion in the right kidney could be pyelonephritis with a lobar nephroma. Correlate clinically Prominence the left renal pelvis could be parapelvic cysts or congenital kinking of the UPJ. Recommend Urology consult ; and [facility] declined transfer ER provider reviewed Ct images via cloud with Dr. Villasenor- Urologist with recommendations to continue IV Abx for 48 to 72 hours, with repeat CT imaging and repeat labs . IR drainage and nephrostomy tube placement may be required if a full abscess does develop and will be re-valuated for transfer Discussed at great length with patient and Dr. Talbot Labs Labs Laboratory Tests Test 12/31/20 11:25 12/31/20 12:40 12/31/20 12:54 01/01/21 03:30 White Blood Count 8.0 x10^3/uL (4.0-11.0) Red Blood Count 4.09 x10^6/uL (3.50-5.40) Hemoglobin 12.5 g/dL (12.0-15.5) Hematocrit 36.6 % (36.0-47.0) Mean Corpuscular Volume 90 fL (79-100) Mean Corpuscular Hemoglobin 31 pg (25-35) Mean Corpuscular Hemoglobin Concent 34 g/dL (31-37) Red Cell Distribution Width 13.5 % (11.5-14.5) Platelet Count 263 x10^3/uL (140-400) Neutrophils (%) (Auto) 75 % (31-73) Lymphocytes (%) (Auto) 13 % (24-48) Monocytes (%) (Auto) 11 % (0-9) Eosinophils (%) (Auto) 1 % (0-3) Basophils (%) (Auto) 1 % (0-3) Neutrophils # (Auto) 6.1 x10^3/uL (1.8-7.7) Lymphocytes # (Auto) 1.0 x10^3/uL (1.0-4.8) Monocytes # (Auto) 0.9 x10^3/uL (0.0-1.1) Eosinophils # (Auto) 0.1 x10^3/uL (0.0-0.7) Basophils # (Auto) 0.0 x10^3/uL (0.0-0.2) Sodium Level 138 mmol/L (136-145) 139 mmol/L (136-145) Potassium Level 4.0 mmol/L (3.5-5.1) 4.2 mmol/L (3.5-5.1) Chloride Level 104 mmol/L (98-107) 106 mmol/L (98-107) Carbon Dioxide Level 23 mmol/L (21-32) 29 mmol/L (21-32) Anion Gap 11 (6-14) 4 (6-14) Blood Urea Nitrogen 10 mg/dL (7-20) 8 mg/dL (7-20) Creatinine 0.8 mg/dL (0.6-1.0) 0.8 mg/dL (0.6-1.0) Estimated GFR (Cockcroft-Gault) 81.2 81.2 BUN/Creatinine Ratio 13 (6-20) Glucose Level 105 mg/dL (70-99) 116 mg/dL (70-99) Calcium Level 10.3 mg/dL (8.5-10.1) 9.5 mg/dL (8.5-10.1) Total Bilirubin 0.5 mg/dL (0.2-1.0) Direct Bilirubin 0.1 mg/dL (0.0-0.2) Aspartate Amino Transf (AST/SGOT) 23 U/L (15-37) Alanine Aminotransferase (ALT/SGPT) 46 U/L (14-59) Alkaline Phosphatase 76 U/L (46-116) Total Protein 7.5 g/dL (6.4-8.2) Albumin 3.7 g/dL (3.4-5.0) Albumin/Globulin Ratio 1.0 (1.0-1.7) Lipase 107 U/L (73-393) Serum Test, Qualitative Negative (NEG) Urine Collection Type Unknown Urine Color Yellow Urine Clarity Clear Urine pH 5.5 (<5.0-8.0) Urine Specific [place] 1.020 (1.000-1.030) Urine Protein Negative mg/dL (NEG-TRACE) Urine Glucose (UA) Negative mg/dL (NEG) Urine Ketones (Stick) Negative mg/dL (NEG) Urine Blood Negative (NEG) Urine Nitrite Negative (NEG) Urine Bilirubin Negative (NEG) Urine Urobilinogen Dipstick 0.2 mg/dL (0.2 mg/dL) Urine Leukocyte Esterase Negative (NEG) Urine RBC 1-2 /HPF (0-2) Urine WBC 1-4 /HPF (0-4) Urine Squamous Epithelial Cells Many /LPF Urine Bacteria Few /HPF (0-FEW) Urine Mucus Mod /LPF Urine Opiates Screen Pos (NEG) Urine Methadone Screen Neg (NEG) Urine Barbiturates Neg (NEG) Urine Phencyclidine Screen Neg (NEG) Urine Amphetamine/Methamphetamine Neg (NEG) Urine Benzodiazepines Screen Neg (NEG) Urine Cocaine Screen Neg (NEG) Urine Cannabinoids Screen Neg (NEG) Urine Ethyl Alcohol Neg (NEG) Bedside Urine HCG, Qualitative Hcg negative (Negative) Phosphorus Level 3.0 mg/dL (2.6-4.7) Magnesium Level 2.0 mg/dL (1.8-2.4) Test 01/01/21 03:35 White Blood Count 6.9 x10^3/uL (4.0-11.0) Red Blood Count 3.65 x10^6/uL (3.50-5.40) Hemoglobin 11.1 g/dL (12.0-15.5) Hematocrit 32.9 % (36.0-47.0) Mean Corpuscular Volume 90 fL (79-100) Mean Corpuscular Hemoglobin 31 pg (25-35) Mean Corpuscular Hemoglobin Concent 34 g/dL (31-37) Red Cell Distribution Width 13.6 % (11.5-14.5) Platelet Count 245 x10^3/uL (140-400) Neutrophils (%) (Auto) 61 % (31-73) Lymphocytes (%) (Auto) 26 % (24-48) Monocytes (%) (Auto) 9 % (0-9) Eosinophils (%) (Auto) 3 % (0-3) Basophils (%) (Auto) 1 % (0-3) Neutrophils # (Auto) 4.2 x10^3/uL (1.8-7.7) Lymphocytes # (Auto) 1.8 x10^3/uL (1.0-4.8) Monocytes # (Auto) 0.6 x10^3/uL (0.0-1.1) Eosinophils # (Auto) 0.2 x10^3/uL (0.0-0.7) Basophils # (Auto) 0.1 x10^3/uL (0.0-0.2) Laboratory Tests Test 12/31/20 11:25 12/31/20 12:40 12/31/20 12:54 01/01/21 03:30 White Blood Count 8.0 x10^3/uL (4.0-11.0) Red Blood Count 4.09 x10^6/uL (3.50-5.40) Hemoglobin 12.5 g/dL (12.0-15.5) Hematocrit 36.6 % (36.0-47.0) Mean Corpuscular Volume 90 fL (79-100) Mean Corpuscular Hemoglobin 31 pg (25-35) Mean Corpuscular Hemoglobin Concent 34 g/dL (31-37) Red Cell Distribution Width 13.5 % (11.5-14.5) Platelet Count 263 x10^3/uL (140-400) Neutrophils (%) (Auto) 75 % (31-73) Lymphocytes (%) (Auto) 13 % (24-48) Monocytes (%) (Auto) 11 % (0-9) Eosinophils (%) (Auto) 1 % (0-3) Basophils (%) (Auto) 1 % (0-3) Neutrophils # (Auto) 6.1 x10^3/uL (1.8-7.7) Lymphocytes # (Auto) 1.0 x10^3/uL (1.0-4.8) Monocytes # (Auto) 0.9 x10^3/uL (0.0-1.1) Eosinophils # (Auto) 0.1 x10^3/uL (0.0-0.7) Basophils # (Auto) 0.0 x10^3/uL (0.0-0.2) Sodium Level 138 mmol/L (136-145) 139 mmol/L (136-145) Potassium Level 4.0 mmol/L (3.5-5.1) 4.2 mmol/L (3.5-5.1) Chloride Level 104 mmol/L (98-107) 106 mmol/L (98-107) Carbon Dioxide Level 23 mmol/L (21-32) 29 mmol/L (21-32) Anion Gap 11 (6-14) 4 (6-14) Blood Urea Nitrogen 10 mg/dL (7-20) 8 mg/dL (7-20) Creatinine 0.8 mg/dL (0.6-1.0) 0.8 mg/dL (0.6-1.0) Estimated GFR (Cockcroft-Gault) 81.2 81.2 BUN/Creatinine Ratio 13 (6-20) Glucose Level 105 mg/dL (70-99) 116 mg/dL (70-99) Calcium Level 10.3 mg/dL (8.5-10.1) 9.5 mg/dL (8.5-10.1) Total Bilirubin 0.5 mg/dL (0.2-1.0) Direct Bilirubin 0.1 mg/dL (0.0-0.2) Aspartate Amino Transf (AST/SGOT) 23 U/L (15-37) Alanine Aminotransferase (ALT/SGPT) 46 U/L (14-59) Alkaline Phosphatase 76 U/L (46-116) Total Protein 7.5 g/dL (6.4-8.2) Albumin 3.7 g/dL (3.4-5.0) Albumin/Globulin Ratio 1.0 (1.0-1.7) Lipase 107 U/L (73-393) Serum Test, Qualitative Negative (NEG) Urine Collection Type Unknown Urine Color Yellow Urine Clarity Clear Urine pH 5.5 (<5.0-8.0) Urine Specific [place] 1.020 (1.000-1.030) Urine Protein Negative mg/dL (NEG-TRACE) Urine Glucose (UA) Negative mg/dL (NEG) Urine Ketones (Stick) Negative mg/dL (NEG) Urine Blood Negative (NEG) Urine Nitrite Negative (NEG) Urine Bilirubin Negative (NEG) Urine Urobilinogen Dipstick 0.2 mg/dL (0.2 mg/dL) Urine Leukocyte Esterase Negative (NEG) Urine RBC 1-2 /HPF (0-2) Urine WBC 1-4 /HPF (0-4) Urine Squamous Epithelial Cells Many /LPF Urine Bacteria Few /HPF (0-FEW) Urine Mucus Mod /LPF Urine Opiates Screen Pos (NEG) Urine Methadone Screen Neg (NEG) Urine Barbiturates Neg (NEG) Urine Phencyclidine Screen Neg (NEG) Urine Amphetamine/Methamphetamine Neg (NEG) Urine Benzodiazepines Screen Neg (NEG) Urine Cocaine Screen Neg (NEG) Urine Cannabinoids Screen Neg (NEG) Urine Ethyl Alcohol Neg (NEG) Bedside Urine HCG, Qualitative Hcg negative (Negative) Phosphorus Level 3.0 mg/dL (2.6-4.7) Magnesium Level 2.0 mg/dL (1.8-2.4) Test 01/01/21 03:35 White Blood Count 6.9 x10^3/uL (4.0-11.0) Red Blood Count 3.65 x10^6/uL (3.50-5.40) Hemoglobin 11.1 g/dL (12.0-15.5) Hematocrit 32.9 % (36.0-47.0) Mean Corpuscular Volume 90 fL (79-100) Mean Corpuscular Hemoglobin 31 pg (25-35) Mean Corpuscular Hemoglobin Concent 34 g/dL (31-37) Red Cell Distribution Width 13.6 % (11.5-14.5) Platelet Count 245 x10^3/uL (140-400) Neutrophils (%) (Auto) 61 % (31-73) Lymphocytes (%) (Auto) 26 % (24-48) Monocytes (%) (Auto) 9 % (0-9) Eosinophils (%) (Auto) 3 % (0-3) Basophils (%) (Auto) 1 % (0-3) Neutrophils # (Auto) 4.2 x10^3/uL (1.8-7.7) Lymphocytes # (Auto) 1.8 x10^3/uL (1.0-4.8) Monocytes # (Auto) 0.6 x10^3/uL (0.0-1.1) Eosinophils # (Auto) 0.2 x10^3/uL (0.0-0.7) Basophils # (Auto) 0.1 x10^3/uL (0.0-0.2) Review All relevant outside records, renal labs, imaging studies, telemetry/EKG's were reviewed. Images Images THE ABDOMEN AND PELVIS WITH IV CONTRAST. History: Reason: abdominal pain, flank pain / Spl. Instructions: OMNI 300 75ML / History: Comparison:None. Procedure: Contiguous axial images of the abdomen and pelvis were performed after the administration of 75 cc of Omni 300 IV contrast. Oral contrast: No. Findings: Liver: Unremarkable Spleen: Unremarkable Pancreas: Unremarkable Adrenal Glands: Unremarkable Kidneys: There is a 2.3 x 2.1 cm hypoattenuating lesion in the mid right kidney posterior laterally with minimal surrounding inflammation. Prominence left renal pelvis is seen. There has been prior cholecystectomy. The appendix appears normal. There is multiple prominent fluid-filled loops of small bowel on the left. There is no mass or lymphadenopathy. There is no free air. There is no free fluid. The urinary bladder appears normal. Impression: 1. Hypoattenuating lesion in the right kidney could be pyelonephritis with a lobar nephroma. Clinical correlation is suggested. 2. Prominence the left renal pelvis could be parapelvic cysts or congenital kinking of the UPJ. There is no perinephric edema on the left. 3. Mild ileus. End Impression PQRS Compliance Statement: One or more of the following individualized dose reduction techniques were utilized for this examination: 1. Automated exposure control 2. Adjustment of the mA and/or kV according to patient size 3. Use of iterative reconstruction technique Electronically signed by: Lorenzo Werner III, MD (12/31/2020 1:40 PM) [facility] MD Jan 01, 2021 10:09
[2021-01-01 11:00] VITALS: BP 134/74
--- NOTE | 2021-01-01 11:23 | NUR ---
SW following. Discussed with RN, pt from home, room air, regular diet. Nephrology following. RN advised no SW needs at this time. SW will continue to follow.
[2021-01-01 15:00] VITALS: BP 103/63
--- NOTE | 2021-01-01 15:20 | PDOC ---
[employer] PROGRESS NOTE Date of Service DOS: DATE: 01/01/21 TIME: 15:15 Chief Complaint Chief Complaint Flank pain History of Present Illness History of Present Illness History obtained from discussion with the ED physician and chart review: Patient is a 35-year-old female with past medical history of ADHD, multiple strep throat infections as a child, tonsillectomy who comes in with right-sided flank pain which radiates to the lower right abdominal area. Patient also complains of left-sided flank pain in the past but is not as bad as the right side. Patient has been experiencing this pain since Thursday. She apparently went to the urgent healthcare and her UA said that she had leukocytes that was suggestive of UTI and she was given ciprofloxacin. Patient states that she had the left flank pain initially but it did actually gravitate more towards the right side later on. Endorses some urinary frequency. Denies any dysuria, fevers, chest pain, shortness of breath, rash, trauma or nausea vomiting. Last bowel movement was today before coming into the ED. LMP was December 14 of this year. 01/01 Patient evaluated and examined at bedside. She says her flank pain has improved but is notably still present. Denying any sort of dysuria at this time. Continue Zosyn. Describing the pain as very intermittent where she will feel fine at times and other times gets a large amount of pain in either flank. Says that she did get a handful of UTIs when she was younger but has not had any in a while. Does not think she is ever been evaluated by urologist. CT scan performed here has interesting read I am not exactly sure what to make of. Planning to repeat CT scan tomorrow evening. Vitals/I&O Vitals/I&O: Vital Signs Date Time Temp Pulse Resp B/P (MAP) Pulse Ox O2 Delivery O2 Flow Rate FiO2 01/01/21 11:00 98.3 72 18 134/74 (94) 97 98.3 01/01/21 09:27 Room Air I & O 12/31/20 12/31/20 01/01/21 15:00 23:00 07:00 Intake Total 50 ml 2100 ml Output Total 600 ml Balance 50 ml 1500 ml Physical Exam General: Alert, Oriented X3, Cooperative Heart: Regular rate, Normal S1, Normal S2 Lungs: Clear Abdomen: Normal bowel sounds, Soft, Other (Flank tenderness) Extremities: No edema, Normal pulses Skin: No significant lesion Labs Labs: Laboratory Tests Test 01/01/21 03:30 01/01/21 03:35 Sodium Level 139 mmol/L (136-145) Potassium Level 4.2 mmol/L (3.5-5.1) Chloride Level 106 mmol/L (98-107) Carbon Dioxide Level 29 mmol/L (21-32) Anion Gap 4 (6-14) Blood Urea Nitrogen 8 mg/dL (7-20) Creatinine 0.8 mg/dL (0.6-1.0) Estimated GFR (Cockcroft-Gault) 81.2 Glucose Level 116 mg/dL (70-99) Calcium Level 9.5 mg/dL (8.5-10.1) Phosphorus Level 3.0 mg/dL (2.6-4.7) Magnesium Level 2.0 mg/dL (1.8-2.4) White Blood Count 6.9 x10^3/uL (4.0-11.0) Red Blood Count 3.65 x10^6/uL (3.50-5.40) Hemoglobin 11.1 g/dL (12.0-15.5) Hematocrit 32.9 % (36.0-47.0) Mean Corpuscular Volume 90 fL (79-100) Mean Corpuscular Hemoglobin 31 pg (25-35) Mean Corpuscular Hemoglobin Concent 34 g/dL (31-37) Red Cell Distribution Width 13.6 % (11.5-14.5) Platelet Count 245 x10^3/uL (140-400) Neutrophils (%) (Auto) 61 % (31-73) Lymphocytes (%) (Auto) 26 % (24-48) Monocytes (%) (Auto) 9 % (0-9) Eosinophils (%) (Auto) 3 % (0-3) Basophils (%) (Auto) 1 % (0-3) Neutrophils # (Auto) 4.2 x10^3/uL (1.8-7.7) Lymphocytes # (Auto) 1.8 x10^3/uL (1.0-4.8) Monocytes # (Auto) 0.6 x10^3/uL (0.0-1.1) Eosinophils # (Auto) 0.2 x10^3/uL (0.0-0.7) Basophils # (Auto) 0.1 x10^3/uL (0.0-0.2) Assessment and Plan Assessmemt and Plan Problems Medical Problems: (1) Lesion of right [place] kidney Status: Acute (2) Pyelonephritis Status: Acute Bilateral flank pain, possible acute pyelonephritis History of multiple strep pharyngitis History of ADHD Admit to hospitalist service for further management Continue Zosyn Repeat CT imaging tomorrow evening to observe for evolution or enlarging of the lesion, if appears stable can consider possible discharge with 2 weeks of antibiotics and follow-up closely with urology on outpatient basis Nephrology consult Continue IV fluids Consider echocardiogram to consider complications of strep pharyngitis in the past that may have caused the valvular vegetation or damage, if unable to elucidate reasons for nephroma if abscess has been ruled out Lovenox for DVT prophylaxis Regular diet CODE STATUS full Discussed with RN and SW Disposition inpatient management as above DPOA: Comment Review of Relevant I have reviewed the following items cari (where applicable) has been applied. Medications: Current Medications Medications (Trade) Dose Ordered Sig/Kenneth Route PRN Reason Start Time Stop Time Status Last Admin Dose Admin Hydromorphone HCl (Dilaudid) 1 mg 1X ONCE IVP 12/31/20 17:45 12/31/20 17:49 DC 12/31/20 17:43 Hydromorphone HCl (Dilaudid) 1 mg PRN Q2HR PRN IVP pain 12/31/20 17:45 01/01/21 09:27 Sennosides (Senna) 17.2 mg PRN BID PRN PO CONSTIPATION 12/31/20 18:15 01/01/21 09:30 Ondansetron HCl (Zofran) 4 mg PRN Q6HRS PRN IVP NAUSEA/VOMITING, 1st CHOICE 12/31/20 18:15 01/01/21 05:58 Zolpidem Tartrate (Ambien) 2.5 mg PRN QHS PRN PO INSOMNIA 12/31/20 18:15 12/31/20 20:39 Sodium Chloride 1,000 ml @ 100 mls/hr Q10H IV 12/31/20 18:15 01/01/21 05:30 Piperacillin Sod/ Tazobactam Sod 3.375 gm/Sodium Chloride 50 ml @ 100 mls/hr Q6HRS IV 12/31/20 19:00 01/01/21 12:00 Justifications for Admission Other Justification Pyelnephritis KALEY HEWITT MD Jan 01, 2021 15:20
[2021-01-01] MEDS ORDERED: ENOXAPARIN 40 MG/0.4 ML SYRINGE. SQ SCH (16:30)
[2021-01-01] MEDS ORDERED: MAGNESIUM CITRATE 296 ML SOLUTION. PO PRN (18:45)
[2021-01-01 19:00] VITALS: BP 112/60
[2021-01-01] MEDS ORDERED: ZOLPIDEM 5 MG TABLET. PO PRN (20:45)
[2021-01-01] MEDS: POLYETHYLENE GLYCOL 3350 17 GM PACKET. PO PRN (21:07)
[2021-01-01] MEDS: LACTOBACILLUS RHAMNOSUS GG 1 CAPSULE. PO SCH (21:07)
[2021-01-01 23:00] VITALS: BP 124/72
[2021-01-02] MEDS: IV NORMAL SALINE 1000ML BAG 1,000 ML IV SCH (00:12)
[2021-01-02] MEDS: PIPERACILLIN/TAZOBACTAM 3.375 GM in IV NORMAL SALINE 50ML 50 ML IV SCH ×3 (00:12→12:22)
[2021-01-02] MEDS: HYDROmorphone 2 MG/ML VIAL IVP PRN (02:29)
[2021-01-02] MEDS: ONDANSETRON PF 4 MG/2 ML VIAL. IVP PRN (02:30)
[2021-01-02 03:00] VITALS: BP 119/63
[2021-01-02 07:00] VITALS: BP 122/71
[2021-01-02 07:25] LABS: CALCIUM 10.3 mg/dL (8.5-10.1); CREATININE 0.9 mg/dL (0.6-1.0); GFR 70.8; MAGNESIUM 2.1 mg/dL (1.8-2.4); POTASSIUM 3.7 mmol/L (3.5-5.1)
[2021-01-02 07:42] LABS: BASO % 1 % (0-3); EOS # 0.1 x10^3/uL (0.0-0.7); EOS % 2 % (0-3); HEMATOCRIT 36.7 % (36.0-47.0); HEMOGLOBIN 12.3 g/dL (12.0-15.5); LYMPH # 1.7 x10^3/uL (1.0-4.8); LYMPH % 27 % (24-48); MEAN CORPUSCULAR HEMOGLOBIN 30 pg (25-35); MEAN CORPUSCULAR HGB CONC 34 g/dL (31-37); MEAN CORPUSCULAR VOLUME 91 fL (79-100); MONO # 0.3 x10^3/uL (0.0-1.1); MONO % 5 % (0-9); NEUT # 4.1 x10^3/uL (1.8-7.7); NEUT % 65 % (31-73); PLATELET COUNT 285 x10^3/uL (140-400); RED BLOOD COUNT 4.06 x10^6/uL (3.50-5.40); RED CELL DISTRIBUTION WIDTH 13.7 % (11.5-14.5); WHITE BLOOD COUNT 6.3 x10^3/uL (4.0-11.0)
[2021-01-02] MEDS: LACTOBACILLUS RHAMNOSUS GG 1 CAPSULE. PO SCH (09:04)
[2021-01-02] MEDS: POLYETHYLENE GLYCOL 3350 17 GM PACKET. PO PRN (09:07)
[2021-01-02] MEDS ORDERED: IOHEXOL 350 MG/ML 100 ML VIAL. IV ONE (09:45)
[2021-01-02] MEDS ORDERED: CONTRAST GIVEN. MC PRN (09:45)
[2021-01-02] MEDS ORDERED: IOHEXOL 300 MG/ML 100ML VIAL. IV ONE (10:00)
[2021-01-02 11:00] VITALS: BP 110/66
--- NOTE | 2021-01-02 11:10 | RAD ---
CT of the abdomen and pelvis with contrast 01/02/2021 11:01 AM Indication: Reason: reeval from 2d ago for perinephric abscess, pyelonephritis Comparison study: CT of the abdomen and pelvis with contrast, December 31, 2020 Technique: Multidetector CT imaging of the abdomen and pelvis was performed following the administrat ion of IV contrast. Findings: Somewhat ill-defined area of hypodensity in the posterior lateral right kidney is grossly similar to comparison study. Right kidney is otherwise unremarkable. Left kidney is unchanged in appearance. Lef t parapelvic cysts versus less likely chronic UPJ stenosis similar in appearance. Ureters are nondila [place]. The bladder is grossly unremarkable. Cholecystectomy noted. Liver and spleen are unremarkable. Adrenal glands are unremarkable. Pancreas i s unremarkable. There is no bowel obstruction. No inflammatory changes involving the bowel are identi fied. No free fluid or free air seen in the abdomen or pelvis. Uterus and adnexa have an unremarkable CT appearance. No acute osseous abnormalities are identified. IMPRESSION: Unchanged appearance of somewhat ill-defined hypodense lesion in the inferior lateral rig ht kidney. 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 No well-defined abscess is identified. Recommend a post therapeutic multiphase renal protocol CT exam 6-8 weeks from now to ensure resolution and exclude an underlying process/neoplasm. CT DOSING PQRS STATEMENT: One or more of the following individualized dose reduction techniques were utilized for this examinat ion: 1. Automated exposure control 2. Adjustment of the mA and/or kV according to patient size 3. Use of iterative reconstruction technique Electronically signed by: Manuel Cagle MD (01/02/2021 11:07 AM) [id number]
--- NOTE | 2021-01-02 12:19 | PDOC ---
DATE OF SERVICE DATE: 01/02/21 TIME: 12:15 SUBJECTIVE ROS States feeling much better Sitting up in bed. No N/V, No flank pain, No symptoms of UTI OBJECTIVE Vital Signs Vital Signs Date Time Temp Pulse Resp B/P (MAP) Pulse Ox O2 Delivery O2 Flow Rate FiO2 01/02/21 11:00 98.0 72 18 110/66 (81) 99 98.0 01/02/21 07:00 Room Air I & 0 Intake and Output 01/02/21 07:00 Intake Total 1302 ml Output Total 2300 ml Balance -998 ml Intake Oral 120 ml IV Total 1182 ml Output Urine Total 2300 ml # Voids 2 PHYSICAL EXAM Physical Exam General: no acute distress HEENT: Pupils equally round and reactive to light, EOMI, OM moist Neck: Supple, Cardiac: RRR, no murmurs, no gallops, no rubs Lungs: CTAB, Non labored Abdomen: soft, non-distended, no guarding, : . No Chin Extremities: no edema, Neuro: Alert and oriented x 4, no focal deficits, normal speech Psych Cooperative Derm No rash DIAGNOSIS/ASSESSMENT Assessment & Plan Bilateral flank pain Vacillating POA - Per CT scan report acute pyelonephritis Rt ; UA unemarkable , has been on Cipro for UTI Dx at urgent care Received multiple doses of opioid pain medications, including Dilaudid in ER; . Renal Function /Cr is normal. Avoid NSAID's Abnormal CT- Hypoattenuating lesion in the right kidney could be pyelonephritis with a lobar nephroma. Correlate clinically Prominence the left renal pelvis could be parapelvic cysts or congenital kinking of the UPJ. Recommend Urology consult ; and [facility] declined transfer ER provider reviewed Ct images via cloud with Dr. Villasenor- Urologist with recommendations to continue IV Abx for 48 to 72 hours, with repeat CT imaging and repeat labs . IR drainage and nephrostomy tube placement may be required if a full abscess does develop and will be re-valuated for transfer Repeat CT done today - IMPRESSION: Unchanged appearance of hypodense lesion in the inferior lateral right kidney. In the clinical setting of infection, finding most likely reflects lobar nephronia/acute focal nephritis. No well-defined abscess is identified. Recommend a post therapeutic multiphase renal protocol CT exam 6-8 weeks from now to ensure resolution and exclude an underlying process/neoplasm. Agree with switching to PO Antibiotic . Follow up with Urology COMMENT/RELEVANT DATA Meds Current Medications Medications (Trade) Dose Ordered Sig/Kenneth Start Time Stop Time Status Last Admin Dose Admin Acetaminophen (Tylenol) 650 mg PRN Q4HRS PRN 12/31/20 18:15 Ceftriaxone Sodium (Rocephin) 1 gm 1X ONCE 12/31/20 14:00 12/31/20 14:03 DC 12/31/20 14:30 1 GM Dextrose (Dextrose 50%-Water Syringe) 12.5 gm PRN Q15MIN PRN 12/31/20 18:15 Docusate Sodium (Colace) 100 mg PRN DAILY PRN 12/31/20 18:15 Enoxaparin Sodium (Lovenox 40mg Syringe) 40 mg Q24H 01/01/21 16:30 Fentanyl Citrate (Fentanyl 2ml Vial) 50 mcg PRN Q1HR PRN 12/31/20 17:45 Hydromorphone HCl (Dilaudid) 1 mg PRN Q2HR PRN 12/31/20 17:45 01/02/21 02:29 1 MG Ibuprofen (Motrin) 600 mg PRN Q6HRS PRN 12/31/20 18:30 Info (CONTRAST GIVEN -- Rx MONITORING) 1 each PRN DAILY PRN 01/02/21 09:45 01/04/21 09:44 Iohexol (Omnipaque 300 Mg/ml) 75 ml 1X ONCE 01/02/21 10:00 01/02/21 10:01 DC 01/02/21 09:57 75 ML Iohexol (Omnipaque 350 Mg/ml) 100 ml 1X ONCE 01/02/21 09:45 01/02/21 09:46 DC Lactobacillus Rhamnosus (Culturelle) 1 cap BID 01/01/21 21:00 01/02/21 09:04 1 CAP Lorazepam (Ativan Inj) 0.25 mg PRN Q4HRS PRN 12/31/20 18:15 Lorazepam (Ativan) 0.5 mg PRN Q6HRS PRN 12/31/20 18:15 Magnesium Citrate (Citroma) 296 ml PRN 1X PRN 01/01/21 18:45 Morphine Sulfate (Morphine Sulfate) 4 mg 1X ONCE 12/31/20 14:45 12/31/20 14:47 DC 12/31/20 14:50 4 MG Ondansetron HCl (Zofran) 4 mg PRN Q6HRS PRN 12/31/20 18:15 01/02/21 02:30 4 MG Piperacillin Sod/ Tazobactam Sod 3.375 gm/Sodium Chloride 50 ml @ 100 mls/hr Q6HRS 12/31/20 19:00 01/02/21 05:49 100 MLS/HR Polyethylene Glycol (miraLAX PACKET) 17 gm PRN DAILY PRN 01/01/21 18:45 01/02/21 09:07 17 GM Prochlorperazine Edisylate (Compazine) 10 mg PRN Q6HRS PRN 12/31/20 18:15 Sennosides (Senna) 17.2 mg PRN BID PRN 12/31/20 18:15 01/01/21 09:30 17.2 MG Sodium Chloride 1,000 ml @ 100 mls/hr Q10H 12/31/20 18:15 01/02/21 00:12 100 MLS/HR Zolpidem Tartrate (Ambien) 5 mg PRN QHS PRN 01/01/21 20:45 01/01/21 21:07 5 MG Lab Laboratory Tests Test 01/02/21 06:20 White Blood Count 6.3 x10^3/uL (4.0-11.0) Red Blood Count 4.06 x10^6/uL (3.50-5.40) Hemoglobin 12.3 g/dL (12.0-15.5) Hematocrit 36.7 % (36.0-47.0) Mean Corpuscular Volume 91 fL (79-100) Mean Corpuscular Hemoglobin 30 pg (25-35) Mean Corpuscular Hemoglobin Concent 34 g/dL (31-37) Red Cell Distribution Width 13.7 % (11.5-14.5) Platelet Count 285 x10^3/uL (140-400) Neutrophils (%) (Auto) 65 % (31-73) Lymphocytes (%) (Auto) 27 % (24-48) Monocytes (%) (Auto) 5 % (0-9) Eosinophils (%) (Auto) 2 % (0-3) Basophils (%) (Auto) 1 % (0-3) Neutrophils # (Auto) 4.1 x10^3/uL (1.8-7.7) Lymphocytes # (Auto) 1.7 x10^3/uL (1.0-4.8) Monocytes # (Auto) 0.3 x10^3/uL (0.0-1.1) Eosinophils # (Auto) 0.1 x10^3/uL (0.0-0.7) Basophils # (Auto) 0.0 x10^3/uL (0.0-0.2) Sodium Level 137 mmol/L (136-145) Potassium Level 3.7 mmol/L (3.5-5.1) Chloride Level 102 mmol/L (98-107) Carbon Dioxide Level 27 mmol/L (21-32) Anion Gap 8 (6-14) Blood Urea Nitrogen 12 mg/dL (7-20) Creatinine 0.9 mg/dL (0.6-1.0) Estimated GFR (Cockcroft-Gault) 70.8 Glucose Level 117 mg/dL (70-99) Calcium Level 10.3 mg/dL (8.5-10.1) Magnesium Level 2.1 mg/dL (1.8-2.4) Results All relevant outside records, renal labs, imaging studies, telemetry/EKG's were reviewed. Justicifation of Admission Dx: Justifications for Admission: Justification of Admission Dx: N/A RAVEN NICE MD Jan 02, 2021 12:19
[2021-01-02] MEDS ORDERED: SULF1TAB24 PO (12:22)
--- NOTE | 2021-01-02 12:29 | PDOC3 ---
[facility]-Discharge Summary Date of Admission: Date of Admission: Dec 31, 2020 Date of Discharge: Date of Discharge: Jan 02, 2021 Admission Diagnosis: Admitting Diagnosis: Pyelonephritis Discharge Diagnosis: Discharge Diagnosis: Same Consults: Consults: Nephrology Procedures: Procedures: CT of the abdomen and pelvis with contrast 01/02/2021 11:01 AM Indication: Reason: reeval from 2d ago for perinephric abscess, pyelonephritis Comparison study: CT of the abdomen and pelvis with contrast, December 31, 2020 Technique: Multidetector CT imaging of the abdomen and pelvis was performed following the administration of IV contrast. Findings: Somewhat ill-defined area of hypodensity in the posterior lateral right kidney is grossly similar to comparison study. Right kidney is otherwise unremarkable. Left kidney is unchanged in appearance. Left parapelvic cysts versus less likely chronic UPJ stenosis similar in appearance. Ureters are nondilated. The bladder is grossly unremarkable. Cholecystectomy noted. Liver and spleen are unremarkable. Adrenal glands are unremarkable. Pancreas is unremarkable. There is no bowel obstruction. No inflammatory changes involving the bowel are identified. No free fluid or free air seen in the abdomen or pelvis. Uterus and adnexa have an unremarkable CT appearance. No acute osseous abnormalities are identified. IMPRESSION: Unchanged appearance of somewhat ill-defined hypodense lesion in the inferior lateral right kidney. In the clinical setting of infection, finding most likely reflects lobar nephronia/acute focal nephritis. No well-defined abscess is identified. Recommend a post therapeutic multiphase renal protocol CT exam 6-8 weeks from now to ensure resolution and exclude an underlying process/neoplasm. CT DOSING PQRS STATEMENT: One or more of the following individualized dose reduction techniques were utilized for this examination: 1. Automated exposure control 2. Adjustment of the mA and/or kV according to patient size 3. Use of iterative reconstruction technique Hospital Course: Hospital Course: History obtained from discussion with the ED physician and chart review: Patient is a 35-year-old female with past medical history of ADHD, multiple strep throat infections as a child, tonsillectomy who comes in with right-sided flank pain which radiates to the lower right abdominal area. Patient also complains of left-sided flank pain in the past but is not as bad as the right side. Patient has been experiencing this pain since Thursday. She apparently went to the urgent healthcare and her UA said that she had leukocytes that was suggestive of UTI and she was given ciprofloxacin. Patient states that she had the left flank pain initially but it did actually gravitate more towards the right side later on. Endorses some urinary frequency. Denies any dysuria, fevers, chest pain, shortness of breath, rash, trauma or nausea vomiting. Last bowel movement was today before coming into the ED. LMP was December 14 of this year. 01/01 Patient evaluated and examined at bedside. She says her flank pain has improved but is notably still present. Denying any sort of dysuria at this time. Continue Zosyn. Describing the pain as very intermittent where she will feel fine at times and other times gets a large amount of pain in either flank. Says that she did get a handful of UTIs when she was younger but has not had any in a while. Does not think she is ever been evaluated by urologist. CT scan performed here has interesting read I am not exactly sure what to make of. Planning to repeat CT scan tomorrow evening. 01/02 CT scan repeated today shows no abscess or worsening infection. Patient clinically improved as well. Discussed with her the findings of the CT scan and plan moving forward. Recommend that she repeat the CT scan in 6 to 8 weeks either through her primary care physician or urologist if primary care can refer her to 1. Agreeable to discharge today. Will switch Zosyn to Bactrim to complete platelet treatment. Follow-up with PCP within a week. Need urology follow-up. I spent greater than 30 minutes in the planning coordination and [id number] with the patient in regards to discharge Disposition: Disposition/Orders: D/C to Home Activity: Activity: Resume previous activity Diet: Diet: Regular Medications: Home Meds Active Scripts Sulfamethoxazole/Trimethoprim (BACTRIM DS TABLET) 1 Each Tablet, 1 TAB PO BID for Pyelonephritis for 10 Days, #20 TAB 0 Refills Prov:KALEY HEWITT MD 01/02/21 Scheduled Sulfamethoxazole/Trimethoprim (Bactrim Ds Tablet), 1 TAB PO BID Justicifation of Admission Dx: Justifications for Admission: Justification of Admission Dx: N/A KALEY HEWITT MD Jan 02, 2021 12:28
--- NOTE | 2021-01-02 14:00 | NUR ---
Discharge Note: Patient was discharged home with self care. Patients IV was discontinued without any complications by [employer]. Patient was given discharge summary/instructions, follow-ups, and educational material. Patients prescriptions were sent to patients preferred pharmacy. Patient did not have any further questions or concerns. Patient ambulated to the main entrance accompanied by RACHID Arreola and family member, where their car was parked.
--- NOTE | 2021-01-31 09:51 | NUR ---
Late entry: NaCl bolus given on 12/31/20 at 1128, stopped at 1227.
== END 2021-01-02 14:00 | disposition home or self-care (01) ==
LOC: ER 10:28 → 5 NORTH 17:21 → INTOOBSV 01-02 09:28 → OBSVTOIN 01-02 09:28
PROVIDERS: ADMIT Internal Medicine; ATTEND Internal Medicine
DX: N12 Tubulo-interstitial nephritis, not specified as acute or chronic (principal); F90.9 Attention-deficit hyperactivity disorder, unspecified type; K56.7 Ileus, unspecified; N10 Acute pyelonephritis; N15.1 Renal and perinephric abscess; N28.9 Disorder of kidney and ureter, unspecified; Z87.440 Personal history of urinary (tract) infections; Z90.49 Acquired absence of other specified parts of digestive tract; Z79.899 Other long term (current) drug therapy; Z98.890 Other specified postprocedural states
CPT/HCPCS: 36415; 74177; 80048; 80053; 80307; 81001; 81025; 82248; 83690; 83735; 84100; 84703; 85025; 96361; 96365; 96366; 96375; 96376; 99285; G0378; J0696; J1170; J2270; J2405; J2543; J7030; Q9967; G0379

== ENCOUNTER 2021-02-21 00:44 | Emergency (ER) | payer OTHER ==
[~2021-02-21] VITALS: Ht 165.1 cm; Wt 69.5 kg
[~2021-02-21 00:44] MED LIST: SULF1TAB24 PO
[2021-02-21 02:30] VITALS: BP 96/57
--- NOTE | 2021-02-21 02:49 | PHYS DOC ---
Past Medical History Additional Past Medical Histor: ADHD Past Surgical History: Cholecystectomy, Tonsillectomy Smoking Status: Never Smoker Alcohol Use: Rarely General Adult EDM: Chief Complaint: SYNCOPE HPI: HPI: Patient is a 35 year old female without pertinent past medical history who presents with a syncopal episode. Patient reports a poor appetite over the past several days, with poor food and water intake. 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 Said that her vision closed and and then she syncopized. Another officer caught her before she hit the floor, avoiding injury. She denied any preceding palpitations, chest pain, shortness of breath. No recent lower extremity edema. No history of malignancy. No hemoptysis. No history of DVT/PE. No recent surgeries or immobilizations. Denies any recent infectious symptoms such as fever, chills, nausea, vomiting, diarrhea, abdominal pain, dysuria, urgency, frequency. She does not think that she could be . LMP was 12/5. Denies any history of arrhythmia, cardiac issues, or family history of arrhythmias/sudden cardiac . Review of Systems: Review of Systems: Constitutional: Denies fever or chills. Reports poor appetite. [] Eyes: Denies change in visual acuity. [] HENT: Denies nasal congestion or sore throat. [] Respiratory: Denies cough or shortness of breath. [] Cardiovascular: Reports syncopal episode. Denies chest pain or edema. [] GI: Denies abdominal pain, nausea, vomiting, bloody stools or diarrhea. [] : Denies dysuria. [] Musculoskeletal: Denies back pain or joint pain. [] Integument: Denies rash. [] Neurologic: Denies headache, focal weakness or sensory changes. [] Endocrine: Denies polyuria or polydipsia. [] Lymphatic: Denies swollen glands. [] Psychiatric: Denies depression or anxiety. [] Heart Score: C/O Chest Pain: No Allergies: Allergies: Allergies Coded Allergies Type Severity Reaction Last Updated Verified No Known Drug Allergies 12/31/20 No Physical Exam: PE: Constitutional: Well developed, well nourished, no acute distress, non-toxic appearance. [] HENT: Normocephalic, atraumatic, bilateral external ears normal, oropharynx moist, no oral exudates, nose normal. [] Eyes: PERRLA, EOMI, conjunctiva normal, no discharge. [] Neck: Normal range of motion, no tenderness, supple, no stridor. [] Cardiovascular:Heart rate regular rhythm, no murmur [] Lungs & Thorax: Bilateral breath sounds clear to auscultation [] Abdomen: Bowel sounds normal, soft, no tenderness, no masses, no pulsatile masses. [] Skin: Warm, dry, no erythema, no rash. [] Back: No tenderness, no CVA tenderness. [] Extremities: No tenderness, no cyanosis, no clubbing, ROM intact, no edema. [] Neurologic: Alert and oriented X 3, normal motor function, normal sensory function, no focal deficits noted. [] Psychologic: Affect normal, judgement normal, mood normal. [] Current Patient Data: Labs: Laboratory Tests Test 02/21/21 02:27 02/21/21 02:29 POC Urine HCG, Qualitative Hcg negative (Negative) Glucose (Fingerstick) 119 mg/dL (70-99) H Vital Signs: Vital Signs Date Time Temp Pulse Resp B/P (MAP) Pulse Ox O2 Delivery O2 Flow Rate FiO2 02/21/21 00:51 98.3 95 18 103/68 (80) 98 Room Air 98.3 EKG: EKG: Sinus rhythm. Normal axis. Rate 91. QTc 420. TN 156. QRS 80. No ST elevation or depression. Reviewed EKG for dangerous causes of syncope: -No evidence of AV blocks -No evidence of ischemia -No evidence of preexcitation/WPW -No evidence of Brugada pattern in V1/V2 -No evidence of deep T wave inversions and epsilon wave/arrhythmogenic right ventricular dysplasia -No evidence of LVH/strain pattern associated with HOCM [] Radiology/Procedures: Radiology/Procedures: [] Course & Med Decision Making: Course & Med Decision Making Pertinent Labs and Imaging studies reviewed. (See chart for details) Patient 35-year-old female presents with a syncopal episode in the setting of poor p.o. intake over the past several days. EKG reviewed as above. Reassuring without evidence of ischemia, arrhythmia, blocks, ischemia, HOCM, brugada etc. No sx of DVT/PE. PERC negative. No PE work up needed. negative. Blood glucose non-contributory. No major volume losses or EKG changes to suggest an electrolyte imbalance, do no feel she needs chemistries done. No major blood loss, heavy menstruation. No pallor. Do not feel CBC is needed. She is feeling back to baseline. Feel she is safe for discharge at this time as she is at low risk for cardiogenic syncope. Dragon Disclaimer: Dragon Disclaimer: This electronic medical record was generated, in whole or in part, using a voice recognition dictation system. Departure Departure Impression: Primary Impression: Syncope Disposition: 01 HOME / SELF CARE / HOMELESS Condition: STABLE Patient Instructions: Syncope Additional Instructions: Please be sure to eat and drink well to try to avoid recurrent episode. Your EKG was reassuring. Your test was negative. Please follow-up with your regular doctor within the next 1 to 2 weeks. If you develop chest pain, palpitations, shortness of breath, swelling in your legs, fever/chills, or other new/concerning symptoms please return to the emergency department for reevaluation. EDGARD EVANS MD Feb 21, 2021 02:49
--- NOTE | 2021-02-21 06:34 | EKG ---
[facility] [address] [place] [address] Test Date: 2021-02-21 Test Time: 01:05:16 Pat Name: CALLI LUNDBERG Department: Room: Gender: F Property Clerk: : [id number] Requested By: EDGARD EVANS Order Number: [id number] Reading MD: Timi Bonilla Measurements Intervals Crane Rate: 91 P: -21 MS: 156 QRS: 43 QRSD: 80 T: 54 QT: 340 QTc: 420 Interpretive Statements SINUS RHYTHM NORMAL ECG RI6.02 No previous ECG available for comparison Electronically Signed On 02-21-2021 12:32:14 SET UP MECHANIC by Timi Bonilla
== END 2021-02-21 02:56 | disposition home or self-care (01) ==
LOC: ER 00:44
DX: R55 Syncope and collapse (principal); R42 Dizziness and giddiness; R63.0 Anorexia
CPT/HCPCS: 81025; 82962; 93005; 99283; 99284